=== PATIENT | female | born 1965 | race Caucasian/White ===

== ENCOUNTER → 2016-12-18 | Outpatient (CLI) | payer OTHER ==
--- NOTE | 2016-12-18 20:50 | Diagnostic Imaging Report ---
EXAMINATION: Hepatic ultrasound. INDICATION: Cirrhosis. COMPARISON: There are no prior studies available for comparison. FINDINGS: The liver is mildly enlarged measuring 19 cm in maximum dimension. There is no focal mass involving the liver, and the biliary tree is not dilated. The liver echogenicity is normal. Spectral and color flow imaging of the portal vein reveals that the vein is patent and that there is normal directional flow within the vein. There is no evidence for cholelithiasis or acute cholecystitis, and the common bile duct is not dilated. The right kidney is unremarkable. The pancreas was obscured by bowel gas. IMPRESSION: 1. The liver is mildly enlarged, but there is no focal mass involving the liver. 2. There is no acute abnormality of the right upper quadrant. 3. The pancreas was obscured by bowel gas. Dictated by: Dictated on workstation # [id number]
== END ==
LOC: RAD 08:17
PROVIDERS: ATTEND Pediatrics
DX: K74.60 Unspecified cirrhosis of liver (principal); B18.2 Chronic viral hepatitis C
CPT/HCPCS: 76705

== ENCOUNTER → 2018-05-26 | Outpatient (CLI) | payer OTHER ==
--- NOTE | 2018-05-26 10:17 | Diagnostic Imaging Report ---
PROCEDURE: US Hepatic (Liver). TECHNIQUE: Multiple real-time grayscale images were obtained over the right upper quadrant in various projections. INDICATION: Cirrhosis of the liver. COMPARISON: Comparison with 12/18/2016. FINDINGS: There is increased echogenic appearance to the renal parenchyma with enlarged liver. Long axis of the right lobe of the liver is 18 cm. The bile ducts are not dilated. Common duct measures 4 mm. Gallbladder appears normal without evidence of gallstones or wall thickening. Portal vein is patent with Doppler sampling showing normal flow. Pancreas is not well seen with considerable midline bowel gas. The right kidney appears normal measuring 11 cm. There is no ascites. IMPRESSION: Finding consistent with cirrhosis of the liver with hepatic steatosis and mild hepatomegaly. Overall appearance does not appear significantly changed when compared with previous exam. Dictated by: Dictated on workstation # [id number]
== END ==
LOC: RAD 09:04
PROVIDERS: ATTEND Nurse Practitioner Community Health
DX: K74.60 Unspecified cirrhosis of liver (principal); K76.0 Fatty (change of) liver, not elsewhere classified
CPT/HCPCS: 76705

== ENCOUNTER → 2019-01-05 | Outpatient (CLI) | payer OTHER ==
[2019-01-05 10:41] LABS: PROTHROMBIN TIME PATIENT 13.7 SEC (12.2-14.7)
[2019-01-05 10:48] LABS: ALANINE AMINOTRANSFERASE 35 U/L (0-55); ALBUMIN 3.7 GM/DL (3.2-4.5); ALKALINE PHOSPHATASE 128 U/L (40-136); BILIRUBIN,TOTAL 0.5 MG/DL (0.1-1.0); BUN/CREATININE RATIO 10; CALCIUM 9.5 MG/DL (8.5-10.1); CARBON DIOXIDE 27 MMOL/L (21-32); CHLORIDE 101 MMOL/L (98-107); CREATININE SERUM 0.67 MG/DL (0.60-1.30); GFR ESTIMATED > 60; GLUCOSE 167 MG/DL (70-105); POTASSIUM 3.1 MMOL/L (3.6-5.0); SODIUM 139 MMOL/L (135-145); TOTAL PROTEIN 7.6 GM/DL (6.4-8.2)
--- NOTE | 2019-01-05 10:48 | Diagnostic Imaging Report ---
INDICATION: Shortness of air COMPARISON: None available TECHNIQUE: Frontal and lateral radiographs of the chest dated 01/05/2019 FINDINGS: The cardiac silhouette and pulmonary vasculature are within normal limits. The lungs are clear. No pleural effusion. No pneumothorax. Mild scattered osseous degenerative changes without acute osseous abnormality. IMPRESSION: No acute cardiopulmonary abnormality. Dictated by: Dictated on workstation # [id number]
== END ==
LOC: RAD 09:57
PROVIDERS: ATTEND Family Medicine
DX: Z02.71 Encounter for disability determination (principal); J44.9 Chronic obstructive pulmonary disease, unspecified
CPT/HCPCS: 36415; 71046; 80053; 85610